=== PATIENT | female | born 1940 | race Caucasian/White ===

== ENCOUNTER 2016-06-14 17:37 | Observation (INO) | payer OTHER ==
[~2016-06-14] VITALS: Ht 162.6 cm; Wt 103.8 kg
[~2016-06-14 17:37] MED LIST: ASPIR-TRIN325 M1 PO; BENTYL20 MG PO; CATAPRES0.2 MG PO; CELEBREX200 MG PO; ENDOCET 5-3251 EACH PO; FEOSOL325 MG PO; FLAGYL250 MG PO; Glucotrol PO; LOPERAMIDE2 M1 PO; Levothroid,Synthroid PO; NAPROXEN500 MG PO; NORCO 5/3251 TABLET PO; NORVASC5 MG PO; PAXIL40 MG PO; PRAVACHOL20 MG PO; SENOKOT S,PE1 TABLET PO; Tenormin PO; VITAMIN D1000 INTUN PO; Vicodin,Lortab 5/500 PO
[2016-06-14 19:29] LABS: HEMATOCRIT 38.7 % (36.0-46.0); MCH 28.9 PG (29.0-34.0); MCHC 33.1 G/DL (30.0-36.0); MCV 87.4 FL (83-99); MEAN PLAT.VOLUME 10.2 uM^3 (9.5-12.4); PLATELET COUNT 202 K/uL (156-360); RBC DIS.WIDTH-CV 12.5 % (11.8-14.6); RED BLOOD COUNT 4.43 M/uL (3.80-5.20); WHITE BLOOD COUNT 7.6 K/uL (4.1-10.2)
[2016-06-14 20:00] LABS: CHLORIDE 105 mEq/L (99-109); SODIUM 141 mEq/L (136-147)
[2016-06-14 20:01] LABS: GLUCOSE 101 mg/dL (70-99)
[2016-06-14 20:03] LABS: ANION GAP 12 MEQ/L (2-14)
[2016-06-14 20:05] LABS: GFR ESTIMATE (CALCULATED) > 59 mL/min/
[2016-06-14 20:06] LABS: UREA NITROGEN (BUN) 19 mg/dL (9-23)
[2016-06-14 20:09] LABS: TROP-I INTERPRETATION NEGATIVE; TROPONIN-I < 0.01 ng/mL (0.0-0.30)
[2016-06-14] MEDS ORDERED: LOW DOSE ASPIRI81 M1 PO (22:33)
[2016-06-14] MEDS ORDERED: TENORMIN25 MG PO (22:33)
[2016-06-14] MEDS ORDERED: PROZAC20 MG PO (22:34)
[2016-06-14] MEDS ORDERED: VITAMIN D31000 UNI2 PO (22:34)
[2016-06-14] MEDS ORDERED: CLONIDINE HCL0.3 MG PO (22:36)
[2016-06-14] MEDS ORDERED: VALIUM5 MG PO (22:36)
[2016-06-14] MEDS ORDERED: LEVO-T137 MCG PO (22:37)
[2016-06-14] MEDS ORDERED: GLUCOTROL XL2.5 MG PO (22:37)
[2016-06-15 04:32] VITALS: BP 247/109
[2016-06-15 04:44] LABS: TROP-I INTERPRETATION NEGATIVE; TROPONIN-I < 0.01 ng/mL (0.0-0.30)
[2016-06-15 05:02] LABS: HDL CHOLESTEROL 55 MG/DL (Desirable>=50); LDL CHOLESTEROL 142 mg/dL (Desirable<100); NON-HDL CHOLESTEROL 168 mg/dL (Desirable<160); TOTAL CHOLESTEROL 223 mg/dL (Desirable<200); TRIGLYCERIDES 129 MG/DL (Normal: <150)
[2016-06-15 05:57] VITALS: BP 134/60
[2016-06-15 06:45] LABS: Estimated Average Glucose 126 mg/dL (70-123)
[2016-06-15 06:54] LABS: METH RESISTANT S AUREUS PCR NEGATIVE (NEGATIVE)
[2016-06-15 07:07] LABS: PROBE CHECK PASS; SPECIMEN PROCESSING CONTROL PASS
[2016-06-15 07:46] VITALS: BP 164/71
[2016-06-15 08:47] LABS: POINT-OF-CARE METER ID UU14162513
[2016-06-15 10:47] LABS: TROP-I INTERPRETATION NEGATIVE; TROPONIN-I < 0.01 ng/mL (0.0-0.30)
[2016-06-15 11:34] VITALS: BP 109/73
[2016-06-15 12:17] LABS: POINT-OF-CARE METER ID UU13113831
[2016-06-15] MEDS ORDERED: APRESOLINE50 MG PO (13:54)
== END 2016-06-15 15:25 | disposition home or self-care (01) ==
LOC: EME 17:37 → EDOF 06-15 03:41 → 5WEST 06-15 04:16
PROVIDERS: Emergency Medicine; Internal Medicine
DX: I16.0 Hypertensive urgency (principal); I10 Essential (primary) hypertension; R51 Headache; E89.0 Postprocedural hypothyroidism; F41.9 Anxiety disorder, unspecified; E11.9 Type 2 diabetes mellitus without complications; K58.9 Irritable bowel syndrome, unspecified; Z96.653 Presence of artificial knee joint, bilateral; Z87.891 Personal history of nicotine dependence; F33.9 Major depressive disorder, recurrent, unspecified; M19.90 Unspecified osteoarthritis, unspecified site; I73.9 Peripheral vascular disease, unspecified; J44.9 Chronic obstructive pulmonary disease, unspecified; M81.0 Age-related osteoporosis without current pathological fracture; K21.9 Gastro-esophageal reflux disease without esophagitis; Z68.39 Body mass index [BMI] 39.0-39.9, adult; E78.5 Hyperlipidemia, unspecified; E66.01 Morbid (severe) obesity due to excess calories
CPT/HCPCS: 71010; 80048; 80061; 82948; 83036; 84443; 84484; 85027; 87641; 93005; 99281; 99285; G0378; J1644